=== PATIENT | female | born 1960 | race Caucasian/White ===

== ENCOUNTER 2017-09-30 21:50 | Emergency (ER) | payer MEDICARE ==
--- NOTE | 2017-09-30 23:30 | ULT ---
ULTRASOUND WITH DOPPLER DUPLEX VENOUS LOWER EXTREMITIES BILATERAL: 09/30/17 HISTORY: 56-year-old female with bilateral lower extremity pain and erythema. TECHNIQUE: Color flow Doppler, spectral waveform analysis of pulsed Doppler, and porter-scale imaging with eron sadie and augmentation, were used to evaluate the bilateral common femoral, femoral, popliteal, patient relations liaison ior tibial, and superficial femoral, veins; and the proximal portions of the profunda femoral and gre ater saphenous, veins. FINDINGS: There is normal compressibility, demonstration of blood flow by color Doppler and pulsed Doppler, and response to augmentation, in all interrogated veins. IMPRESSION: Negative. No deep vein thrombosis in the bilateral lower extremities. megan[] POS: [facility]
== END 2017-10-01 01:20 | disposition home or self-care (01) ==
LOC: ERS 21:50
DX: L03.115 Cellulitis of right lower limb (principal); L03.116 Cellulitis of left lower limb; F41.9 Anxiety disorder, unspecified; F32.9 Major depressive disorder, single episode, unspecified; F17.210 Nicotine dependence, cigarettes, uncomplicated
CPT/HCPCS: 93970

== ENCOUNTER 2023-02-17 13:05 | Inpatient (IN) | payer OTHER ==
[2023-02-17 16:44] VITALS: BMI 38.3
[2023-02-17] MEDS ORDERED: Calcium Carbonate 500 MG ChewTAB PO PRN (17:57)
[2023-02-17] MEDS ORDERED: Acetaminophen 650 MG Suppository PR PRN (17:57)
[2023-02-17] MEDS ORDERED: Fentanyl 100 MCG/2 ML VIAL SLOW IVP PRN (17:57)
[2023-02-17] MEDS ORDERED: fentaNYL 50 mcg/mL 1 mL Vial SLOW IVP PRN ×2 (18:14→18:44)
[2023-02-17] MEDS: Dextrose 5%-Lactated Ringers 1,000 ML IV SCH (18:21)
[2023-02-17] MEDS: Promethazine HCl 25 MG in Sodium Chloride 0.9% 50 ML IVPB PRN (19:52)
[2023-02-17] MEDS: Pantoprazole 40 MG VIAL IVP SCH (20:16)
[2023-02-17] MEDS: Heparin 5,000 UNITS/ML VIAL SC SCH (20:21)
[2023-02-17] MEDS: fentaNYL 50 mcg/mL 1 mL Vial SLOW IVP PRN (23:18)
[2023-02-18] MEDS: Dextrose 5%-Lactated Ringers 1,000 ML IV SCH ×3 (01:11→14:59)
[2023-02-18] MEDS: fentaNYL 50 mcg/mL 1 mL Vial SLOW IVP PRN ×5 (02:19→15:00)
[2023-02-18 05:30] LABS: #Eosinphils 0.1 thou/uL (0.0-0.7); #Lymphocytes 1.2 thou/uL (1.20-3.40); #Monocytes 0.2 thou/uL (0.11-0.59); #Neutrophils 1.7 thou/uL (1.40-6.50); %Basophils 1.2 % (0.0-1.0); %Eosinophils 1.6 % (0.0-10.0); %Lymphocytes 38.1 % (21.0-51.0); %Monocytes 6.6 % (0.0-10.0); %Neutrophils 52.4 % (42.0-75.0); Hemoglobin 9.2 g/dL (12.0-16.0); Mean Corpuscular HGB CONC 31.5 g/dL (32.0-36.0); Mean Corpuscular Hemoglobin 31.3 pg (27.0-31.0); Mean Corpuscular Volume 99.4 fl (78.0-98.0); Platelet Count 205 10x3/uL (130-400); RBC Distribution Width 15.8 % (11.5-14.5); Red Blood Cell (RBC) Count 2.95 mill/uL (4.20-5.40); White Blood Cell (WBC) Count 3.2 10x3/uL (4.8-10.8)
[2023-02-18 05:44] LABS: Lactic Acid 2.2 mmol/L (0.5-2.2)
[2023-02-18 05:54] LABS: ALT (SGPT) 18 U/L (8-55); AST (SGOT) 20 U/L (5-34); Alkaline Phosphatase 75 U/L (40-110); Anion Gap 14 mmol/L (10-20); BUN (Urea Nitrogen) 14 mg/dL (9.8-20.1); Bilirubin, Total 0.4 mg/dL (0.2-1.2); Calc. Creatinine Clearance 105 mL/min (70-130); Calcium 8.5 mg/dL (7.8-10.44); Carbon Dioxide 25 mmol/L (22-29); Chloride 105 mmol/L (98-107); Estimated GFR 64; Globulin 3.4 g/dL (2.4-3.5); Glucose 145 mg/dL (70-105); Magnesium 1.3 mg/dL (1.6-2.6); Phosphorus 2.8 mg/dL (2.3-4.7); Potassium 3.6 mmol/L (3.5-5.1); Protein, Total 6.4 g/dL (6.0-8.3); Sodium 140 mmol/L (136-145)
[2023-02-18] MEDS: Promethazine HCl 25 MG in Sodium Chloride 0.9% 50 ML IVPB PRN ×4 (05:57→23:32)
[2023-02-18] MEDS ORDERED: Electrolyte Replacement Protocol 1 EACH FS SCH (07:45)
[2023-02-18] MEDS ORDERED: Magnesium Sulfate 4 GM in Sodium Chloride 0.9% 250 ML 250 ML IVPB SCH (07:45)
[2023-02-18] MEDS ORDERED: Magnesium Sulfate In Water 4 GM in Premix Bag 1 BAG IVPB SCH (08:00)
[2023-02-18] MEDS: Heparin 5,000 UNITS/ML VIAL SC SCH ×3 (09:03→20:36)
[2023-02-18] MEDS: Pantoprazole 40 MG VIAL IVP SCH ×2 (09:03→20:36)
[2023-02-18] MEDS ORDERED: MD-Gastroview 120 ML BOT ONE (11:20)
[2023-02-18] MEDS ORDERED: D5 1/2 NS w/20 mEq KCL 1,000 ML IV SCH (15:45)
[2023-02-18] MEDS ORDERED: diphenhydrAMINE 50 MG/ML VIAL IVP PRN (17:25)
[2023-02-18] MEDS ORDERED: diphenhydrAMINE 25 MG CAP PO PRN (17:25)
[2023-02-18] MEDS ORDERED: Promethazine HCl 25 MG/ML VIAL IM PRN (17:25)
[2023-02-18] MEDS ORDERED: Ondansetron PF 4 MG/2 ML Vial IVP PRN (17:25)
[2023-02-18] MEDS ORDERED: Naloxone HCl 0.4 mg/ml Vial IV PRN (17:25)
[2023-02-18] MEDS ORDERED: diphenhydrAMINE 50 MG/ML VIAL IM PRN (17:25)
[2023-02-18] MEDS ORDERED: Zolpidem Tartrate 5 MG TAB PO PRN (17:25)
[2023-02-18] MEDS ORDERED: Communication Order-Pharmacy FS SCH (17:30)
[2023-02-18] MEDS: D5 1/2 NS w/20 mEq KCL 1,000 ML IV SCH ×2 (18:18→23:32)
[2023-02-18] MEDS: HYDROmorphone 10 mg/100 ml CADD IVPB PRN (18:20)
[2023-02-19] MEDS: Promethazine HCl 25 MG in Sodium Chloride 0.9% 50 ML IVPB PRN ×4 (05:20→23:15)
[2023-02-19 05:48] LABS: #Eosinphils 0.1 thou/uL (0.0-0.7); #Lymphocytes 1.9 thou/uL (1.20-3.40); #Monocytes 0.3 thou/uL (0.11-0.59); #Neutrophils 1.4 thou/uL (1.40-6.50); %Basophils 1.2 % (0.0-1.0); %Eosinophils 3.4 % (0.0-10.0); %Lymphocytes 49.5 % (21.0-51.0); %Monocytes 8.5 % (0.0-10.0); %Neutrophils 37.4 % (42.0-75.0); Hemoglobin 10.4 g/dL (12.0-16.0); Mean Corpuscular HGB CONC 32.4 g/dL (32.0-36.0); Mean Corpuscular Hemoglobin 32.6 pg (27.0-31.0); Mean Platelet Volume 7.7 fL (7.4-10.4); Platelet Count 215 10x3/uL (130-400); RBC Distribution Width 15.9 % (11.5-14.5); White Blood Cell (WBC) Count 3.8 10x3/uL (4.8-10.8)
[2023-02-19 06:09] LABS: ALT (SGPT) 19 U/L (8-55); AST (SGOT) 25 U/L (5-34); Albumin 3.4 g/dL (3.5-5.0); Alkaline Phosphatase 85 U/L (40-110); Anion Gap 12 mmol/L (10-20); BUN (Urea Nitrogen) 11 mg/dL (9.8-20.1); Bilirubin, Total 0.3 mg/dL (0.2-1.2); Calc. Creatinine Clearance 96 mL/min (70-130); Calcium 8.7 mg/dL (7.8-10.44); Carbon Dioxide 24 mmol/L (22-29); Chloride 106 mmol/L (98-107); Estimated GFR 58; Globulin 3.8 g/dL (2.4-3.5); Glucose 88 mg/dL (70-105); Lactic Acid 1.9 mmol/L (0.5-2.2); Phosphorus 2.9 mg/dL (2.3-4.7); Potassium 3.5 mmol/L (3.5-5.1); Protein, Total 7.2 g/dL (6.0-8.3); Sodium 138 mmol/L (136-145)
[2023-02-19] MEDS ORDERED: Magnesium 2 GM/50 ML(in water) 2 GM in Premix Bag 1 BAG IVPB SCH (08:00)
[2023-02-19] MEDS: D5 1/2 NS w/20 mEq KCL 1,000 ML IV SCH ×3 (09:00→21:45)
[2023-02-19] MEDS: Potassium Chloride 20 MEQ in Premix Bag 1 BAG IVPB SCH ×2 (09:02→13:05)
[2023-02-19] MEDS: Pantoprazole 40 MG VIAL IVP SCH ×2 (09:02→21:49)
[2023-02-19] MEDS: Heparin 5,000 UNITS/ML VIAL SC SCH ×3 (09:02→21:49)
[2023-02-19] MEDS: HYDROmorphone 10 mg/100 ml CADD IVPB PRN (21:43)
[2023-02-19] MEDS ORDERED: DRY MOUTH SPRAY PO PRN (21:53)
[2023-02-19] MEDS ORDERED: Phenol 118 ML BOT PO PRN (21:56)
[2023-02-20 07:00] LABS: #Eosinphils 0.1 thou/uL (0.0-0.7); #Lymphocytes 1.4 thou/uL (1.20-3.40); #Monocytes 0.3 thou/uL (0.11-0.59); #Neutrophils 1.2 thou/uL (1.40-6.50); %Basophils 0.6 % (0.0-1.0); %Lymphocytes 47.2 % (21.0-51.0); %Monocytes 9.2 % (0.0-10.0); %Neutrophils 39.9 % (42.0-75.0); Hemoglobin 9.3 g/dL (12.0-16.0); Mean Corpuscular HGB CONC 32.1 g/dL (32.0-36.0); Mean Corpuscular Hemoglobin 32.5 pg (27.0-31.0); Mean Platelet Volume 7.2 fL (7.4-10.4); Platelet Count 201 10x3/uL (130-400); Red Blood Cell (RBC) Count 2.87 mill/uL (4.20-5.40)
[2023-02-20] MEDS: D5 1/2 NS w/20 mEq KCL 1,000 ML IV SCH ×4 (07:00→22:24)
[2023-02-20 07:19] LABS: Anion Gap 14 mmol/L (10-20); BUN (Urea Nitrogen) 10 mg/dL (9.8-20.1); Calc. Creatinine Clearance 96 mL/min (70-130); Calcium 8.9 mg/dL (7.8-10.44); Carbon Dioxide 26 mmol/L (22-29); Chloride 107 mmol/L (98-107); Estimated GFR 58; Glucose 86 mg/dL (70-105); Potassium 3.9 mmol/L (3.5-5.1); Sodium 143 mmol/L (136-145)
[2023-02-20] MEDS: Promethazine HCl 25 MG in Sodium Chloride 0.9% 50 ML IVPB PRN ×3 (08:06→20:40)
[2023-02-20] MEDS: Heparin 5,000 UNITS/ML VIAL SC SCH ×3 (08:21→20:39)
[2023-02-20] MEDS: Pantoprazole 40 MG VIAL IVP SCH ×2 (08:22→20:40)
[2023-02-20] MEDS: Polyethylene Glycol 3350 17 GM Packet PO SCH (09:42)
[2023-02-20] MEDS ORDERED: Cepastat Lozenges 1 LOZ PO PRN (10:40)
[2023-02-21] MEDS: Promethazine HCl 25 MG in Sodium Chloride 0.9% 50 ML IVPB PRN ×3 (04:53→18:43)
[2023-02-21] MEDS: D5 1/2 NS w/20 mEq KCL 1,000 ML IV SCH ×4 (05:36→20:52)
[2023-02-21 07:28] LABS: #Eosinphils 0.1 thou/uL (0.0-0.7); #Lymphocytes 1.1 thou/uL (1.20-3.40); #Monocytes 0.4 thou/uL (0.11-0.59); #Neutrophils 2.1 thou/uL (1.40-6.50); %Basophils 0.4 % (0.0-1.0); %Eosinophils 1.6 % (0.0-10.0); %Monocytes 11.5 % (0.0-10.0); %Neutrophils 57.5 % (42.0-75.0); Hemoglobin 9.6 g/dL (12.0-16.0); Mean Corpuscular HGB CONC 32.5 g/dL (32.0-36.0); Mean Corpuscular Hemoglobin 32.5 pg (27.0-31.0); Mean Platelet Volume 7.5 fL (7.4-10.4); Platelet Count 198 10x3/uL (130-400); RBC Distribution Width 15.9 % (11.5-14.5); Red Blood Cell (RBC) Count 2.96 mill/uL (4.20-5.40); White Blood Cell (WBC) Count 3.7 10x3/uL (4.8-10.8)
[2023-02-21 07:48] LABS: Anion Gap 11 mmol/L (10-20); BUN (Urea Nitrogen) 6 mg/dL (9.8-20.1); Calc. Creatinine Clearance 100 mL/min (70-130); Calcium 8.9 mg/dL (7.8-10.44); Carbon Dioxide 23 mmol/L (22-29); Chloride 107 mmol/L (98-107); Estimated GFR 61; Glucose 106 mg/dL (70-105); Potassium 4.3 mmol/L (3.5-5.1); Sodium 137 mmol/L (136-145)
[2023-02-21] MEDS: Pantoprazole 40 MG VIAL IVP SCH ×2 (08:58→20:33)
[2023-02-21] MEDS: Heparin 5,000 UNITS/ML VIAL SC SCH ×3 (08:58→20:33)
[2023-02-21] MEDS: Polyethylene Glycol 3350 17 GM Packet PO SCH (08:58)
[2023-02-21] MEDS: Naloxegol 12.5 MG TAB PO SCH (08:58)
[2023-02-21] MEDS: HYDROmorphone 10 mg/100 ml CADD IVPB PRN (11:08)
[2023-02-21] MEDS ORDERED: DC PCA Order Set 1 EACH FS PRN (11:26)
[2023-02-21] MEDS ORDERED: HYDROmorphone 0.5 MG/0.5 ML SYRINGE SLOW IVP SCH ×2 (12:00→22:00)
[2023-02-21] MEDS: HYDROmorphone 0.5 MG/0.5 ML SYRINGE SLOW IVP SCH ×2 (19:43→19:44)
[2023-02-22] MEDS: Promethazine HCl 25 MG in Sodium Chloride 0.9% 50 ML IVPB PRN ×2 (00:58→10:12)
[2023-02-22] MEDS: HYDROmorphone 0.5 MG/0.5 ML SYRINGE SLOW IVP PRN ×3 (01:08→09:48)
[2023-02-22 07:32] LABS: #Eosinphils 0.1 thou/uL (0.0-0.7); #Monocytes 0.6 thou/uL (0.11-0.59); #Neutrophils 1.1 thou/uL (1.40-6.50); %Basophils 1.2 % (0.0-1.0); %Eosinophils 2.5 % (0.0-10.0); %Lymphocytes 43.9 % (21.0-51.0); %Monocytes 17.2 % (0.0-10.0); %Neutrophils 34.9 % (42.0-75.0); Hemoglobin 10.5 g/dL (12.0-16.0); Mean Corpuscular HGB CONC 30.7 g/dL (32.0-36.0); Mean Corpuscular Hemoglobin 32.1 pg (27.0-31.0); Mean Corpuscular Volume 104.6 fl (78.0-98.0); Platelet Count 174 10x3/uL (130-400); RBC Distribution Width 16.9 % (11.5-14.5); Red Blood Cell (RBC) Count 3.27 mill/uL (4.20-5.40); White Blood Cell (WBC) Count 3.3 10x3/uL (4.8-10.8)
[2023-02-22 07:41] LABS: Anion Gap 13 mmol/L (10-20); BUN (Urea Nitrogen) 6 mg/dL (9.8-20.1); Calc. Creatinine Clearance 103 mL/min (70-130); Calcium 9.1 mg/dL (7.8-10.44); Carbon Dioxide 21 mmol/L (22-29); Chloride 110 mmol/L (98-107); Estimated GFR 63; Glucose 107 mg/dL (70-105); Potassium 4.5 mmol/L (3.5-5.1); Sodium 139 mmol/L (136-145)
[2023-02-22 08:30] LABS: CellaVision Operator ID LAB.GE; Macrocytosis SLIGHT = 6-15 cells HPF (0-5); Platelet Morphology Comment Platelets Normal; Polychromasia SLIGHT = 2-3 cells HPF (0-2); RBC Morphology Within Normal Limits
[2023-02-22] MEDS: Naloxegol 12.5 MG TAB PO SCH (09:46)
[2023-02-22] MEDS: Heparin 5,000 UNITS/ML VIAL SC SCH ×3 (09:47→23:41)
[2023-02-22] MEDS: Pantoprazole 40 MG VIAL IVP SCH (09:47)
[2023-02-22] MEDS: Polyethylene Glycol 3350 17 GM Packet PO SCH (10:10)
[2023-02-22] MEDS ORDERED: HYDROcodone/Acetaminophen 10/325 mg Tablet PO PRN (14:13)
[2023-02-22] MEDS ORDERED: fentaNYL 50 mcg/mL 1 mL Vial SLOW IVP SCH (19:30)
[2023-02-22] MEDS: Promethazine 25 MG TAB PO SCH ×2 (20:50→23:41)
[2023-02-22] MEDS ORDERED: traZODone HCl 50 MG TAB PO SCH (21:00)
[2023-02-22] MEDS ORDERED: Gabapentin 300 MG CAP PO SCH (21:00)
[2023-02-22] MEDS ORDERED: Diazepam 5 MG TAB PO SCH (21:00)
[2023-02-22] MEDS ORDERED: Baclofen 10 MG TAB PO SCH (21:00)
[2023-02-22] MEDS ORDERED: Senokot 8.6 MG TAB PO SCH (21:00)
[2023-02-23] MEDS: D5 1/2 NS w/20 mEq KCL 1,000 ML IV SCH ×2 (04:29→04:30)
[2023-02-23 08:59] VITALS: BP 110/70; TEMP 98
[2023-02-23] MEDS ORDERED: FLUoxetine HCl 20 MG CAP PO SCH (09:00)
== END 2023-02-23 09:46 | disposition home or self-care (01) | DRG 389 ==
LOC: SURG B 15:35
PROVIDERS: ADMIT Hospitalist; ATTEND Hospitalist
PROC: 0D9670Z Drainage of Stomach with Drainage Device, Via Natural or Artificial Opening (ICD-10-PCS; principal; 2023-02-17)
DX: K56.609 Unspecified intestinal obstruction, unspecified as to partial versus complete obstruction (principal); C56.9 Malignant neoplasm of unspecified ovary; C79.9 Secondary malignant neoplasm of unspecified site; E87.20 Acidosis, unspecified; G89.29 Other chronic pain; M54.50 Low back pain, unspecified; K21.9 Gastro-esophageal reflux disease without esophagitis; F41.9 Anxiety disorder, unspecified; G62.9 Polyneuropathy, unspecified; Z96.653 Presence of artificial knee joint, bilateral; E86.0 Dehydration; E83.42 Hypomagnesemia; D63.8 Anemia in other chronic diseases classified elsewhere; Z85.43 Personal history of malignant neoplasm of ovary; Z88.1 Allergy status to other antibiotic agents; Z88.5 Allergy status to narcotic agent; Z88.8 Allergy status to other drugs, medicaments and biological substances; Z79.899 Other long term (current) drug therapy; Z79.1 Long term (current) use of non-steroidal anti-inflammatories (NSAID); Z80.8 Family history of malignant neoplasm of other organs or systems; Z90.710 Acquired absence of both cervix and uterus; Z90.49 Acquired absence of other specified parts of digestive tract
CPT/HCPCS: 36415; 74018; 74250; 80048; 80053; 83605; 83735; 84100; 85025; C9113; J1170; J1642; J1644; J2550; J3010; J3475; J3480; Q0169; Q9963

== ENCOUNTER 2023-12-02 13:42 | Observation (INO) | payer MEDICARE, OTHER ==
[2023-12-02] MEDS ORDERED: Midazolam HCl 2 mg/2 ml Vial ONE (14:53)
[2023-12-02] MEDS ORDERED: Iopamidol-370 76% 500 ML MDV (1 ML CHARGE) ONE (14:57)
[2023-12-02 15:08] LABS: #Basophils 0.1 thou/uL (0.0-0.2); #Eosinphils 0.1 thou/uL (0.0-0.7); #Monocytes 0.8 thou/uL (0.11-0.59); #Neutrophils 4.6 thou/uL (1.40-6.50); %Eosinophils 1.1 % (0.0-10.0); %Lymphocytes 22.4 % (21.0-51.0); %Monocytes 11.5 % (0.0-10.0); %Neutrophils 63.7 % (42.0-75.0); Hematocrit 34.6 % (36.0-47.0); Hemoglobin 11.4 g/dL (12.0-16.0); Mean Corpuscular HGB CONC 32.9 g/dL (32.0-36.0); Mean Corpuscular Hemoglobin 30.3 pg (27.0-31.0); Mean Platelet Volume 10.1 fL (7.4-10.4); Platelet Count 300 10x3/uL (130-400); RBC Distribution Width 14.2 % (11.5-14.5); Red Blood Cell (RBC) Count 3.76 mill/uL (4.20-5.40); White Blood Cell (WBC) Count 7.2 10x3/uL (4.8-10.8)
[2023-12-02 15:32] LABS: ALT (SGPT) 16 U/L (8-55); AST (SGOT) 26 U/L (5-34); Albumin 3.3 g/dL (3.5-5.0); Alkaline Phosphatase 100 U/L (40-110); Anion Gap 13 mmol/L (10-20); BUN (Urea Nitrogen) 9 mg/dL (9.8-20.1); Bilirubin, Total 0.5 mg/dL (0.2-1.2); Calc. Creatinine Clearance 0 mL/min (70-130); Calcium 9.3 mg/dL (7.8-10.44); Carbon Dioxide 33 mmol/L (22-29); Chloride 97 mmol/L (98-107); Estimated GFR 86; Globulin 4.3 g/dL (2.4-3.5); Glucose 100 mg/dL (70-105); Lipase 61 U/L (8-78); Magnesium 1.4 mg/dL (1.6-2.6); Potassium 3.1 mmol/L (3.5-5.1); Protein, Total 7.6 g/dL (6.0-8.3); Sodium 140 mmol/L (136-145)
[2023-12-02] MEDS ORDERED: Potassium Chloride 20 MEQ TAB ONE (17:20)
[2023-12-02] MEDS ORDERED: Magnesium 2 GM/50 ML BAG (IN WATER) ONE (17:20)
[2023-12-02] MEDS ORDERED: Potassium Bicarbonate/Cit Ac 20 MEQ TAB ONE (17:32)
[2023-12-02] MEDS ORDERED: LORazepam 2 MG/ML SYR.(CARPUJECT) ONE (18:54)
[2023-12-02] MEDS ORDERED: Acetaminophen 325 MG TAB PO PRN ×2 (19:38→19:45)
[2023-12-02] MEDS ORDERED: Ondansetron ODT 4 MG TAB SL PRN (19:45)
[2023-12-02] MEDS ORDERED: Ondansetron PF 4 MG/2 ML Vial IVP PRN (19:45)
[2023-12-02] MEDS ORDERED: Magnesium 2 GM/50 ML(in water) 2 GM in Premix 1 BAG IVPB SCH (19:45)
[2023-12-02] MEDS ORDERED: HYDROmorphone 0.5 MG/0.5 ML SYRINGE SLOW IVP PRN (20:03)
[2023-12-02] MEDS ORDERED: Baclofen 10 MG TAB PO SCH (21:00)
[2023-12-02] MEDS: Sucralfate 1 GM TAB PO SCH (22:06)
[2023-12-02] MEDS: cefTRIAXone\\ROCEPHIN 1 GM in Sodium Chloride 0.9% 100 ML IVPB SCH (22:07)
[2023-12-02] MEDS: Famotidine/PF 20 mg/2ml Vial SLOW IVP SCH (22:07)
[2023-12-02] MEDS: Doxycycline 100 MG in Sodium Chloride 0.9% 100 ML IVPB SCH (22:08)
[2023-12-02] MEDS: Pantoprazole 40 MG VIAL IVP SCH (22:09)
[2023-12-02] MEDS: Potassium Chloride 20 MEQ in Premix 1 BAG IVPB SCH (22:09)
[2023-12-02] MEDS: traZODone HCl 50 MG TAB PO SCH (22:10)
[2023-12-02] MEDS: Diazepam 2 MG TAB PO SCH (22:10)
[2023-12-02 23:13] VITALS: BMI 35.6
[2023-12-02] MEDS: Heparin 5,000 UNITS/ML VIAL SC SCH (23:30)
[2023-12-02] MEDS: HYDROmorphone 2 MG TAB PO PRN (23:58)
[2023-12-02] MEDS: Magnesium 2 GM/50 ML(in water) 2 GM in Premix 1 BAG IVPB SCH (23:59)
[2023-12-03] MEDS: Potassium Chloride 10 MEQ in Dextrose 5%-Lactated Ringers 1,000 ML IV SCH (00:48)
[2023-12-03] MEDS: HYDROcodone/Acetaminophen 10/325 mg Tablet PO PRN (02:10)
[2023-12-03 06:52] LABS: #Basophils 0.1 thou/uL (0.0-0.2); #Eosinphils 0.2 thou/uL (0.0-0.7); #Monocytes 0.6 thou/uL (0.11-0.59); #Neutrophils 2.8 thou/uL (1.40-6.50); %Basophils 1.4 % (0.0-1.0); %Eosinophils 2.7 % (0.0-10.0); %Lymphocytes 34.8 % (21.0-51.0); %Monocytes 10.9 % (0.0-10.0); %Neutrophils 49.5 % (42.0-75.0); Hematocrit 34.8 % (36.0-47.0); Hemoglobin 11.4 g/dL (12.0-16.0); Mean Corpuscular HGB CONC 32.8 g/dL (32.0-36.0); Mean Corpuscular Volume 91.6 fl (78.0-98.0); Mean Platelet Volume 10.5 fL (7.4-10.4); Platelet Count 226 10x3/uL (130-400); RBC Distribution Width 14.4 % (11.5-14.5); White Blood Cell (WBC) Count 5.6 10x3/uL (4.8-10.8)
[2023-12-03 07:07] LABS: Phosphorus 3.2 mg/dL (2.3-4.7)
[2023-12-03 08:28] LABS: ALT (SGPT) 14 U/L (8-55); AST (SGOT) 26 U/L (5-34); Albumin 2.9 g/dL (3.5-5.0); Alkaline Phosphatase 91 U/L (40-110); Anion Gap 18 mmol/L (10-20); BUN (Urea Nitrogen) 8 mg/dL (9.8-20.1); Bilirubin, Total 0.3 mg/dL (0.2-1.2); Calc. Creatinine Clearance 121 mL/min (70-130); Calcium 8.6 mg/dL (7.8-10.44); Carbon Dioxide 23 mmol/L (22-29); Chloride 103 mmol/L (98-107); Estimated GFR 82; Globulin 3.5 g/dL (2.4-3.5); Glucose 95 mg/dL (70-105); Magnesium 2.1 mg/dL (1.6-2.6); Potassium 4.5 mmol/L (3.5-5.1); Protein, Total 6.4 g/dL (6.0-8.3); Sodium 139 mmol/L (136-145)
[2023-12-03] MEDS: Baclofen 10 MG TAB PO SCH (08:43)
[2023-12-03] MEDS: Naloxegol 12.5 MG TAB PO SCH (08:43)
[2023-12-03] MEDS: OLANZapine 2.5 MG TAB PO SCH (08:45)
[2023-12-03] MEDS: Pantoprazole 40 MG VIAL IVP SCH (08:46)
[2023-12-03] MEDS ORDERED: HYDROmorphone 2 MG TAB PO SCH (09:00)
[2023-12-03] MEDS: Promethazine HCl 25 MG in Sodium Chloride 0.9% 50 ML IVPB PRN (14:11)
[2023-12-03] MEDS ORDERED: MD-Gastroview 120 ML BOT ONE (15:10)
[2023-12-04 08:01] VITALS: BP 119/74; TEMP 98
== END 2023-12-04 10:45 | disposition home or self-care (01) ==
LOC: ERS 13:42 → T4-B 19:36
PROVIDERS: ADMIT Internal Medicine; ATTEND Internal Medicine
DX: C56.9 Malignant neoplasm of unspecified ovary (principal); C78.89 Secondary malignant neoplasm of other digestive organs; J90 Pleural effusion, not elsewhere classified; K21.9 Gastro-esophageal reflux disease without esophagitis; F32.A Depression, unspecified; F41.9 Anxiety disorder, unspecified; Z88.1 Allergy status to other antibiotic agents; Z88.5 Allergy status to narcotic agent; Z79.899 Other long term (current) drug therapy
CPT/HCPCS: 74177; 74250; 80053 ×2; 83615; 83690; 83735 ×2; 84100; 84145; 85025 ×2; 93005; 93971; 97139; J2060; 36415; 96372; 96375; 96376; C9113; G0378; J0696; J1642; J1644; J2250; J2550; J3475; J3480; J3490; Q9963; Q9967; S0028